=== PATIENT | female | born 1995 | race Caucasian/White ===

== ENCOUNTER 2016-07-12 12:51 | Emergency (ER) | payer OTHER ==
[~2016-07-12] VITALS: Ht 160 cm; Wt 78.0 kg
[~2016-07-12 12:51] MED LIST: 12 HOUR DECONG120 M1 PO; ANTIVERT25 MG PO; ATIVAN0.5 MG PO; AZITHROMYCIN250 MG; BENADRYL50 MG PO; BENZONATATE100 MG PO; CIPRO500 MG PO; DOXYCYCLINE HY100 M3 PO; FIORICET,ESG1 TABLET PO; LORTAB 5-325 M1 EACH PO; MOTRIN600 MG PO; MOTRIN800 MG PO; NAPROXEN500 MG PO; PERCOCET 5/31 TABLET PO; PRILOSEC20 MG PO; PYRIDIUM100 MG PO; ROBITUSSIN AC,T10 ML PO; SKELAXIN800 MG PO; SUBUTEX8 MG PO; SYNTHROID88 MCG PO; ULTRAM50 MG PO; ZANTAC150 MG PO; ZOFRAN ODT4 MG PO; ZOLOFT25 MG PO
[2016-07-12 12:59] VITALS: BP 136/77
== END 2016-07-12 15:02 | disposition left against medical advice (07) ==
LOC: EME 12:51
DX: T17.228A Food in pharynx causing other injury, initial encounter (principal); Z53.21 Procedure and treatment not carried out due to patient leaving prior to being seen by health care provider

== ENCOUNTER 2016-08-13 15:40 | Emergency (ER) | payer OTHER ==
[~2016-08-13] VITALS: Ht 160 cm; Wt 74.6 kg
[2016-08-13 16:21] LABS: HEMATOCRIT 39.9 % (36.0-46.0); MCH 29.6 PG (29.0-34.0); MCHC 35.1 G/DL (30.0-36.0); MCV 84.4 FL (83-99); MEAN PLAT.VOLUME 9.7 uM^3 (9.5-12.4); PLATELET COUNT 280 K/uL (156-360); RBC DIS.WIDTH-CV 12.3 % (11.8-14.6); RED BLOOD COUNT 4.73 M/uL (3.80-5.20); WHITE BLOOD COUNT 9.2 K/uL (4.1-10.2)
[2016-08-13 16:33] LABS: CHLORIDE 108 mEq/L (99-109); POTASSIUM 4.5 mEq/L (3.7-5.4); SODIUM 141 mEq/L (136-147)
[2016-08-13 16:35] LABS: GLUCOSE 102 mg/dL (70-99)
[2016-08-13 16:36] LABS: ANION GAP 9 MEQ/L (2-14)
[2016-08-13 16:37] LABS: TOTAL BILIRUBIN 1.5 mg/dL (0.0-1.0)
[2016-08-13 16:38] LABS: ALKALINE PHOSPHATASE 98 IU/L (3-129)
[2016-08-13 16:39] LABS: GFR ESTIMATE (CALCULATED) > 59 mL/min/
[2016-08-13 16:40] LABS: UREA NITROGEN (BUN) 14 mg/dL (9-23)
[2016-08-13 16:42] LABS: LIPASE 16 U/L (1.0-51.0)
[2016-08-13 16:48] LABS: QUANTITATIVE HCG < 4.0 MIU/ML
[2016-08-13 17:28] LABS: ADD MIUA? YES; BILIRUBIN NEGATIVE; BLOOD NEGATIVE; COLOR YELLOW ((YELLOW)); GLUCOSE (STRIP) NEGATIVE; KETONES NEGATIVE; LEUKOCYTES TRACE; NITRITE NEGATIVE; PROTEIN (STRIP) NEGATIVE; SPECIFIC GRAVITY 1.026 (1.000-1.030); UROBILINOGEN 0.2 MG/DL (0.2-1.0)
[2016-08-13 17:52] LABS: BACTERIA RARE /HPF; EPITHELIAL CELLS 1+ /HPF; MUCUS TRACE /LPF; RED BLOOD CELLS 0-5 /HPF (0-5); UCUL ADDED? NO; WHITE BLOOD CELLS 0-5 /HPF (0-5)
[2016-08-13] MEDS ORDERED: ZOFRAN ODT4 MG PO (21:02)
[2016-08-13] MEDS ORDERED: PERCOCET 5/31 TABLET PO (21:02)
[2016-08-13 21:13] VITALS: BP 105/65
[2016-08-14] MEDS ORDERED: SYNTHROID88 MCG PO (21:31)
[2016-08-14] MEDS ORDERED: VITAMIN C500 M1 PO (21:31)
[2016-08-14] MEDS ORDERED: VITAMIN D2000 UNI1 PO (21:32)
== END 2016-08-13 21:17 | disposition home or self-care (01) ==
LOC: EME 15:40
DX: K80.20 Calculus of gallbladder without cholecystitis without obstruction (principal); J45.909 Unspecified asthma, uncomplicated; K21.9 Gastro-esophageal reflux disease without esophagitis; F17.200 Nicotine dependence, unspecified, uncomplicated
CPT/HCPCS: 76705; 80053; 81003; 83690; 84702; 85027; 99281; 99284

== ENCOUNTER 2016-08-14 17:06 | Observation (INO) | payer OTHER ==
[~2016-08-14] VITALS: Ht 162.6 cm; Wt 74.2 kg
[2016-08-14 17:52] LABS: HEMATOCRIT 37.9 % (36.0-46.0); MCH 29.9 PG (29.0-34.0); MCHC 35.6 G/DL (30.0-36.0); MEAN PLAT.VOLUME 9.9 uM^3 (9.5-12.4); PLATELET COUNT 260 K/uL (156-360); RBC DIS.WIDTH-SD 36.2 % (39-53); RED BLOOD COUNT 4.51 M/uL (3.80-5.20)
[2016-08-14 17:53] LABS: WHITE BLOOD COUNT 5.3 K/uL (4.1-10.2)
[2016-08-14 18:01] LABS: CHLORIDE 105 mEq/L (99-109); POTASSIUM 3.9 mEq/L (3.7-5.4); SODIUM 141 mEq/L (136-147)
[2016-08-14 18:03] LABS: GLUCOSE 97 mg/dL (70-99)
[2016-08-14 18:04] LABS: ANION GAP 9 MEQ/L (2-14)
[2016-08-14 18:06] LABS: TOTAL BILIRUBIN 1.1 mg/dL (0.0-1.0)
[2016-08-14 18:07] LABS: ALKALINE PHOSPHATASE 86 IU/L (3-129); GFR ESTIMATE (CALCULATED) > 59 mL/min/
[2016-08-14 18:08] LABS: UREA NITROGEN (BUN) 10 mg/dL (9-23)
[2016-08-14 18:10] LABS: LIPASE 16 U/L (1.0-51.0)
[2016-08-14 18:18] LABS: QUANTITATIVE HCG < 4.0 MIU/ML
[2016-08-14 18:26] LABS: ADD MIUA? YES; BILIRUBIN SMALL; BLOOD NEGATIVE; COLOR DK YELLOW ((YELLOW)); GLUCOSE (STRIP) NEGATIVE; KETONES NEGATIVE; LEUKOCYTES SMALL; NITRITE NEGATIVE; PH, URINE 5.5 (5-8); PROTEIN (STRIP) TRACE; SPECIFIC GRAVITY 1.027 (1.000-1.030)
[2016-08-14 18:38] LABS: BACTERIA RARE /HPF; EPITHELIAL CELLS 2+ /HPF; MUCUS 3+ /LPF; UCUL ADDED? NO
[2016-08-14] MEDS ORDERED: VITAMIN C500 M1 PO (21:31)
[2016-08-14] MEDS ORDERED: SYNTHROID88 MCG PO (21:31)
[2016-08-14] MEDS ORDERED: VITAMIN D2000 UNI1 PO (21:32)
[2016-08-14 22:18] VITALS: BP 116/62
[2016-08-14 23:46] VITALS: BP 107/68
[2016-08-15 00:30] LABS: SERUM ETHYL ALCOHOL < 10 mg/dL
[2016-08-15 04:38] VITALS: BP 100/67
[2016-08-15 08:17] VITALS: BP 98/56
[2016-08-15] MEDS ORDERED: ZOFRAN4 MG PO (11:29)
[2016-08-15 12:00] LABS: AMPHETAMINES QUANT VALUE 0 NG/ML; BARBITUATES QUANT VALUE 0 NG/ML; BENZODIAZEPINES QUANT VALUE 0 NG/ML; BENZODIAZEPINES, URINE SCREEN Negative (200 ng/mL); MARIJUANA QUANT VALUE 0 NG/ML; OPIATES QUANTITATIVE VALUE 0 NG/ML; PHENCYCLIDINE QUANT VALUE 0 NG/ML
[2016-08-16] MEDS ORDERED: VITAMIN D31000 UNI2 PO (11:17)
== END 2016-08-15 11:58 | disposition home or self-care (01) ==
LOC: EME 17:06 → EDOF 21:11 → 5WEST 21:11 → EDOF 21:11 → 5WEST 22:04
PROVIDERS: Physician Assistant Medical
DX: R11.2 Nausea with vomiting, unspecified (principal); K80.20 Calculus of gallbladder without cholecystitis without obstruction; R10.9 Unspecified abdominal pain; E06.3 Autoimmune thyroiditis; F17.210 Nicotine dependence, cigarettes, uncomplicated
CPT/HCPCS: 80053; 80306 90; 81003; 83690; 84702; 85027; 99281; 99284; G0378; G0480; J2270; J2405; J7030; J7042; S0028

== ENCOUNTER 2016-08-16 10:42 | Observation (INO) | payer OTHER ==
[~2016-08-16] VITALS: Ht 160 cm; Wt 74.8 kg
[~2016-08-16 10:42] MED LIST changes: +VITAMIN C500 M1 PO; +VITAMIN D2000 UNI1 PO; +ZOFRAN4 MG PO
[2016-08-16] MEDS ORDERED: VITAMIN D31000 UNI2 PO (11:17)
[2016-08-16 11:26] LABS: EOSINOPHIL (%) 0.9 % (0-5); EOSINOPHIL COUNT 0.1 K/uL (0-0.3); HEMATOCRIT 36.4 % (36.0-46.0); IMMATURE GRANULOCYTE (%) 0.2 % (0.0-0.7); IMMATURE GRANULOCYTE COUNT 0.1 K/uL; LYMPHOCYTE COUNT 1.6 K/uL (1.0-2.8); MCHC 35.7 G/DL (30.0-36.0); MCV 83.9 FL (83-99); MONOCYTE (%) 10.3 % (3-12); MONOCYTE COUNT 0.6 K/uL (0-0.8); NEUTROPHIL COUNT 3.2 K/uL (1.8-6.4); PLATELET COUNT 280 K/uL (156-360); RBC DIS.WIDTH-CV 12.2 % (11.8-14.6); RBC DIS.WIDTH-SD 36.8 % (39-53); RED BLOOD COUNT 4.34 M/uL (3.80-5.20); WHITE BLOOD COUNT 5.5 K/uL (4.1-10.2)
[2016-08-16 11:43] LABS: CHLORIDE 110 mEq/L (99-109); POTASSIUM 3.9 mEq/L (3.7-5.4); SODIUM 141 mEq/L (136-147)
[2016-08-16 11:44] LABS: MAGNESIUM 2.2 mg/dL (1.3-2.7)
[2016-08-16 11:45] LABS: GLUCOSE 91 mg/dL (70-99)
[2016-08-16 11:47] LABS: ANION GAP 10 MEQ/L (2-14)
[2016-08-16 11:48] LABS: TOTAL BILIRUBIN 0.5 mg/dL (0.0-1.0)
[2016-08-16 11:49] LABS: ALKALINE PHOSPHATASE 72 IU/L (3-129); GFR ESTIMATE (CALCULATED) > 59 mL/min/
[2016-08-16 11:50] LABS: UREA NITROGEN (BUN) 7 mg/dL (9-23)
[2016-08-16 13:13] VITALS: BP 114/65
[2016-08-16 16:20] VITALS: BP 114/63
[2016-08-16 19:25] VITALS: BP 117/63
[2016-08-16 23:29] VITALS: BP 116/65
[2016-08-17 03:46] VITALS: BP 97/57
[2016-08-17 06:50] VITALS: BP 104/58
[2016-08-17] MEDS ORDERED: PERCOCET 5/31 TABLET PO (09:03)
[2016-08-17 09:54] VITALS: BP 104/58
== END 2016-08-17 13:17 | disposition home or self-care (01) ==
LOC: EME 10:42 → EDOF 11:41 → 2EAST 11:41 → EDOF 11:41 → 2EAST 13:35
PROVIDERS: Emergency Medicine
PROC: 0FT44ZZ Resection of Gallbladder, Percutaneous Endoscopic Approach (ICD-10-PCS; principal; 2016-08-16)
DX: K80.10 Calculus of gallbladder with chronic cholecystitis without obstruction (principal); F17.200 Nicotine dependence, unspecified, uncomplicated; Z83.49 Family history of other endocrine, nutritional and metabolic diseases; Z88.1 Allergy status to other antibiotic agents; Z88.2 Allergy status to sulfonamides; Z87.898 Personal history of other specified conditions
CPT/HCPCS: 71010; 80053; 83735; 84100; 85025; 88304; 93005; 99281; 99285; G0378; J0131; J1170; J1885; J2175; J2250; J2405; J2710; J2765; J3010; J7030; J7050; J7120; S0028

== ENCOUNTER 2016-08-26 18:50 | Emergency (ER) | payer OTHER ==
[~2016-08-26] VITALS: Ht 160 cm; Wt 76.1 kg
[~2016-08-26 18:50] MED LIST changes: +VITAMIN D31000 UNI2 PO
[2016-08-26] MEDS ORDERED: MOTRIN600 MG PO (19:41)
[2016-08-26 20:09] VITALS: BP 109/87
== END 2016-08-26 20:10 | disposition home or self-care (01) ==
LOC: EME 18:50
DX: S16.1XXA Strain of muscle, fascia and tendon at neck level, initial encounter (principal); S20.219A Contusion of unspecified front wall of thorax, initial encounter; W22.10XA Striking against or struck by unspecified automobile airbag, initial encounter; V43.52XA Car driver injured in collision with other type car in traffic accident, initial encounter; J45.909 Unspecified asthma, uncomplicated; E03.9 Hypothyroidism, unspecified; F17.200 Nicotine dependence, unspecified, uncomplicated
CPT/HCPCS: 99281; 99283

== ENCOUNTER 2016-09-25 05:36 | Emergency (ER) | payer OTHER ==
[~2016-09-25] VITALS: Ht 160 cm; Wt 73.6 kg
[2016-09-25 06:41] LABS: HEMATOCRIT 36.1 % (36.0-46.0); MCH 29.5 PG (29.0-34.0); MCHC 34.3 G/DL (30.0-36.0); MCV 85.7 FL (83-99); MEAN PLAT.VOLUME 9.4 uM^3 (9.5-12.4); PLATELET COUNT 263 K/uL (156-360); RBC DIS.WIDTH-CV 12.1 % (11.8-14.6); RBC DIS.WIDTH-SD 37.8 % (39-53); RED BLOOD COUNT 4.21 M/uL (3.80-5.20); WHITE BLOOD COUNT 6.9 K/uL (4.1-10.2)
[2016-09-25 06:51] LABS: CHLORIDE 108 mEq/L (99-109); POTASSIUM 3.2 mEq/L (3.7-5.4); SODIUM 143 mEq/L (136-147)
[2016-09-25 06:53] LABS: GLUCOSE 107 mg/dL (70-99)
[2016-09-25 06:55] LABS: ANION GAP 11 MEQ/L (2-14)
[2016-09-25 06:57] LABS: GFR ESTIMATE (CALCULATED) > 59 mL/min/
[2016-09-25 06:58] LABS: UREA NITROGEN (BUN) 7 mg/dL (9-23)
[2016-09-25] MEDS ORDERED: PROAIR RESPICL90 MCG IH (07:13)
[2016-09-25 07:38] VITALS: BP 115/59
== END 2016-09-25 07:39 | disposition home or self-care (01) ==
LOC: EME 05:36
DX: J45.901 Unspecified asthma with (acute) exacerbation (principal); E03.9 Hypothyroidism, unspecified; F17.200 Nicotine dependence, unspecified, uncomplicated
CPT/HCPCS: 71020; 80048; 85027; 93005; 94640; 99281; 99284

== ENCOUNTER 2016-10-01 03:28 | Emergency (ER) | payer OTHER ==
[~2016-10-01] VITALS: Ht 160 cm; Wt 73.2 kg
[~2016-10-01 03:28] MED LIST changes: +PROAIR RESPICL90 MCG IH
[2016-10-01 03:31] VITALS: BP 115/81
[2016-10-01 04:15] LABS: EOSINOPHIL (%) 0.9 % (0-5); EOSINOPHIL COUNT 0.1 K/uL (0-0.3); HEMATOCRIT 36.1 % (36.0-46.0); IMMATURE GRANULOCYTE (%) 0.3 % (0.0-0.7); INSTRUMENT ABS NEUTROPHIL CT 3.9 K/uL; LYMPHOCYTE COUNT 2.4 K/uL (1.0-2.8); MCH 29.2 PG (29.0-34.0); MCHC 34.1 G/DL (30.0-36.0); MCV 85.7 FL (83-99); MEAN PLAT.VOLUME 9.3 uM^3 (9.5-12.4); MONOCYTE (%) 8.1 % (3-12); MONOCYTE COUNT 0.6 K/uL (0-0.8); NEUTROPHIL (%) 56.3 % (45-76); NEUTROPHIL COUNT 3.9 K/uL (1.8-6.4); PLATELET COUNT 283 K/uL (156-360); RBC DIS.WIDTH-CV 12.1 % (11.8-14.6); RBC DIS.WIDTH-SD 37.8 % (39-53); RED BLOOD COUNT 4.21 M/uL (3.80-5.20)
[2016-10-01 04:25] LABS: ADD MIUA? YES; BILIRUBIN SMALL; BLOOD NEGATIVE; COLOR YELLOW ((YELLOW)); GLUCOSE (STRIP) NEGATIVE; KETONES 5; LEUKOCYTES TRACE; NITRITE NEGATIVE; PROTEIN (STRIP) 30; SPECIFIC GRAVITY 1.027 (1.000-1.030)
[2016-10-01 04:27] LABS: CHLORIDE 107 mEq/L (99-109); POTASSIUM 3.5 mEq/L (3.7-5.4); SODIUM 139 mEq/L (136-147)
[2016-10-01 04:30] LABS: GLUCOSE 125 mg/dL (70-99)
[2016-10-01 04:31] LABS: ANION GAP 7 MEQ/L (2-14)
[2016-10-01 04:33] LABS: ALKALINE PHOSPHATASE 89 IU/L (3-129); GFR ESTIMATE (CALCULATED) > 59 mL/min/
[2016-10-01 04:35] LABS: UREA NITROGEN (BUN) 7 mg/dL (9-23)
[2016-10-01 04:37] LABS: LIPASE 17 U/L (1.0-51.0)
[2016-10-01 04:42] LABS: BACTERIA 1+ /HPF; CASTS PRESENT /LPF; EPITHELIAL CELLS 2+ /HPF; HYALINE CASTS RARE /LPF; MUCUS 3+ /LPF; RED BLOOD CELLS NONE SEEN /HPF (0-5); UCUL ADDED? NO
[2016-10-01 04:43] LABS: QUANTITATIVE HCG < 4.0 MIU/ML
[2016-10-01] MEDS ORDERED: MACROBID100 MG PO (05:31)
== END 2016-10-01 05:45 | disposition left against medical advice (07) ==
LOC: EME 03:28
PROVIDERS: Emergency Medicine
DX: N39.0 Urinary tract infection, site not specified (principal); R10.13 Epigastric pain; R11.2 Nausea with vomiting, unspecified; J45.909 Unspecified asthma, uncomplicated; E03.9 Hypothyroidism, unspecified; F17.200 Nicotine dependence, unspecified, uncomplicated
CPT/HCPCS: 80053; 81003; 83690; 84702; 85025; 99281; 99284

== ENCOUNTER 2016-10-24 19:07 | Emergency (ER) | payer OTHER ==
[~2016-10-24] VITALS: Ht 160 cm; Wt 73.2 kg
[~2016-10-24 19:07] MED LIST changes: +MACROBID100 MG PO
[2016-10-24 19:19] VITALS: BP 132/89
[2016-10-24 19:32] LABS: HEMATOCRIT 38.9 % (36.0-46.0); MCH 29.5 PG (29.0-34.0); MCHC 34.4 G/DL (30.0-36.0); MCV 85.7 FL (83-99); MEAN PLAT.VOLUME 9.7 uM^3 (9.5-12.4); PLATELET COUNT 302 K/uL (156-360); RBC DIS.WIDTH-CV 12.1 % (11.8-14.6); RBC DIS.WIDTH-SD 37.8 % (39-53); RED BLOOD COUNT 4.54 M/uL (3.80-5.20)
[2016-10-24 19:42] LABS: CHLORIDE 105 mEq/L (99-109); POTASSIUM 3.7 mEq/L (3.7-5.4); SODIUM 139 mEq/L (136-147)
[2016-10-24 19:44] LABS: GLUCOSE 115 mg/dL (70-99)
[2016-10-24 19:45] LABS: ANION GAP 10 MEQ/L (2-14)
[2016-10-24 19:47] LABS: GFR ESTIMATE (CALCULATED) > 59 mL/min/
[2016-10-24 19:48] LABS: UREA NITROGEN (BUN) 10 mg/dL (9-23)
[2016-10-24 20:27] LABS: QUANTITATIVE HCG < 4.0 MIU/ML
[2016-10-24 20:40] LABS: CREATINE KINASE 61 IU/L (1-294)
[2016-10-24 20:44] LABS: ADD MIUA? NO; BILIRUBIN NEGATIVE; BLOOD NEGATIVE; COLOR COLORLESS ((YELLOW)); GLUCOSE (STRIP) NEGATIVE; KETONES NEGATIVE; LEUKOCYTES NEGATIVE; NITRITE NEGATIVE; PROTEIN (STRIP) NEGATIVE; SPECIFIC GRAVITY 1.004 (1.000-1.030); UROBILINOGEN 0.2 MG/DL (0.2-1.0)
[2016-10-24 21:00] LABS: AMPHETAMINE NEGATIVE (500 ng/mL); BARBITURATES NEGATIVE (200 ng/mL); BENZODIAZEPINES NEGATIVE (150 ng/mL); COCAINE NEGATIVE (150 ng/mL); INTERNAL CONTROLS VALID? YES; METHADONE NEGATIVE (200 ng/mL); METHAMPHETAMINE NEGATIVE (500 ng/mL); OPIATES (MORPHINE) NEGATIVE (100 ng/mL); OXYCODONE NEGATIVE (100 ng/mL); PHENCYCLIDINE NEGATIVE (25 ng/mL); PROPOXYPHENE NEGATIVE (300 ng/mL); THC CANNABINOIDS NEGATIVE (50 ng/mL); TRICYCLIC ANTIDEPRESSANTS NEGATIVE (300 ng/mL)
== END 2016-10-24 22:50 | disposition home or self-care (01) ==
LOC: EME 19:07
PROVIDERS: Physician Assistant
DX: R55 Syncope and collapse (principal); J45.909 Unspecified asthma, uncomplicated; E03.9 Hypothyroidism, unspecified; F17.200 Nicotine dependence, unspecified, uncomplicated
CPT/HCPCS: 71020; 80048; 81003; 82550; 84702; 85027; 93005; 99281; 99284

== ENCOUNTER 2016-12-22 02:58 | Emergency (ER) | payer OTHER ==
[~2016-12-22] VITALS: Ht 160 cm; Wt 72.3 kg
[2016-12-22 04:04] LABS: HEMATOCRIT 36.8 % (36.0-46.0); MCH 29.9 PG (29.0-34.0); MCHC 35.3 G/DL (30.0-36.0); MCV 84.6 FL (83-99); MEAN PLAT.VOLUME 9.5 uM^3 (9.5-12.4); PLATELET COUNT 260 K/uL (156-360); RBC DIS.WIDTH-CV 11.9 % (11.8-14.6); RBC DIS.WIDTH-SD 36.3 % (39-53); RED BLOOD COUNT 4.35 M/uL (3.80-5.20); WHITE BLOOD COUNT 7.4 K/uL (4.1-10.2)
[2016-12-22 04:14] LABS: CHLORIDE 107 mEq/L (99-109); POTASSIUM 3.5 mEq/L (3.7-5.4); SODIUM 140 mEq/L (136-147)
[2016-12-22 04:16] LABS: GLUCOSE 91 mg/dL (70-99)
[2016-12-22 04:18] LABS: ANION GAP 10 MEQ/L (2-14)
[2016-12-22 04:20] LABS: ALKALINE PHOSPHATASE 75 IU/L (3-129); GFR ESTIMATE (CALCULATED) > 59 mL/min/
[2016-12-22 04:21] LABS: UREA NITROGEN (BUN) 7 mg/dL (9-23)
[2016-12-22 04:23] LABS: LIPASE 17 U/L (1.0-51.0)
[2016-12-22 04:32] LABS: QUANTITATIVE HCG < 4.0 MIU/ML
[2016-12-22] MEDS ORDERED: BENTYL20 MG PO (04:44)
[2016-12-22] MEDS ORDERED: PROMETHAZINE HC25 M1 PO (04:44)
[2016-12-22 05:20] VITALS: BP 116/79
== END 2016-12-22 05:24 | disposition home or self-care (01) ==
LOC: EME 02:58
PROVIDERS: Emergency Medicine
DX: K20.9 Esophagitis, unspecified (principal); R11.2 Nausea with vomiting, unspecified; R51 Headache; E86.0 Dehydration; E03.9 Hypothyroidism, unspecified; F17.200 Nicotine dependence, unspecified, uncomplicated
CPT/HCPCS: 80053; 81003; 83690; 84702; 85027; 99281; 99284; J0780; J1200; J7030; S0028

== ENCOUNTER 2017-01-04 23:55 | Emergency (ER) | payer SELFPAY ==
[~2017-01-04] VITALS: Ht 160 cm; Wt 71.9 kg
[~2017-01-04 23:55] MED LIST changes: +BENTYL20 MG PO; +PROMETHAZINE HC25 M1 PO
[2017-01-05] MEDS ORDERED: PREDNISONE20 MG PO (01:27)
[2017-01-05] MEDS ORDERED: AMOXICILLIN875 MG PO (01:27)
[2017-01-05 02:22] VITALS: BP 126/59
== END 2017-01-05 02:20 | disposition home or self-care (01) ==
LOC: EME 23:55
DX: J02.9 Acute pharyngitis, unspecified (principal); F17.200 Nicotine dependence, unspecified, uncomplicated; Z88.2 Allergy status to sulfonamides; J45.909 Unspecified asthma, uncomplicated; F32.9 Major depressive disorder, single episode, unspecified; E03.9 Hypothyroidism, unspecified; G43.909 Migraine, unspecified, not intractable, without status migrainosus
CPT/HCPCS: 99281; 99283

== ENCOUNTER 2017-01-14 19:29 | Emergency (ER) | payer OTHER ==
[~2017-01-14] VITALS: Ht 160 cm; Wt 72.0 kg
[~2017-01-14 19:29] MED LIST changes: +AMOXICILLIN875 MG PO; +PREDNISONE20 MG PO
[2017-01-14 20:33] LABS: HEMATOCRIT 40.2 % (36.0-46.0); MCH 29.8 PG (29.0-34.0); MCHC 35.1 G/DL (30.0-36.0); MEAN PLAT.VOLUME 9.8 uM^3 (9.5-12.4); PLATELET COUNT 297 K/uL (156-360); RBC DIS.WIDTH-CV 11.7 % (11.8-14.6); RBC DIS.WIDTH-SD 35.9 % (39-53); RED BLOOD COUNT 4.73 M/uL (3.80-5.20)
[2017-01-14 20:56] LABS: ANION GAP 10 MEQ/L (2-14); CHLORIDE 105 MEQ/L (99-109); POTASSIUM 3.8 MEQ/L (3.7-5.4); SAMPLE HEMOLYSIS CHECK 0; SAMPLE ICTERIC CHECK 0; SAMPLE LIPEMIA CHECK 1; SODIUM 139 MEQ/L (136-147)
[2017-01-14 20:57] LABS: INTERNAL CONTROL VALID? YES; MONOSPOT (MONONUCLEOSIS SEROL) NEGATIVE
[2017-01-14 21:01] LABS: GFR ESTIMATE (CALCULATED) > 59 mL/min/; GLUCOSE 89 mg/dL (70-99); UREA NITROGEN (BUN) 8 mg/dL (9-23)
[2017-01-14 21:23] LABS: QUANTITATIVE HCG < 4.0 MIU/ML
[2017-01-14 22:21] VITALS: BP 122/80
[2017-01-15 09:41] LABS: LYME DISEASE SEROLOGY SCREEN NEGATIVE (NEGATIVE)
== END 2017-01-14 22:22 | disposition home or self-care (01) ==
LOC: EME 19:29
PROVIDERS: Physician Assistant
DX: R52 Pain, unspecified (principal); F17.200 Nicotine dependence, unspecified, uncomplicated
CPT/HCPCS: 71020; 80048; 84443; 84702; 85027; 86308; 86618; 99281; 99283

== ENCOUNTER 2017-01-31 22:52 | Emergency (ER) | payer OTHER ==
[~2017-01-31] VITALS: Ht 160 cm; Wt 71.3 kg
[2017-01-31 23:44] LABS: HEMATOCRIT 37.5 % (36.0-46.0); MCH 29.6 PG (29.0-34.0); MCHC 34.9 G/DL (30.0-36.0); MCV 84.7 FL (83-99); MEAN PLAT.VOLUME 9.8 uM^3 (9.5-12.4); PLATELET COUNT 297 K/uL (156-360); RBC DIS.WIDTH-CV 11.6 % (11.8-14.6); RBC DIS.WIDTH-SD 35.9 % (39-53); RED BLOOD COUNT 4.43 M/uL (3.80-5.20); WHITE BLOOD COUNT 8.9 K/uL (4.1-10.2)
[2017-01-31 23:56] LABS: CHLORIDE 106 mEq/L (99-109); SODIUM 141 mEq/L (136-147)
[2017-01-31 23:58] LABS: GLUCOSE 93 mg/dL (70-99)
[2017-01-31 23:59] LABS: ANION GAP 10 MEQ/L (2-14)
[2017-02-01] LABS: TOTAL BILIRUBIN 0.9 mg/dL (0.0-1.0)
[2017-02-01 00:01] LABS: ALKALINE PHOSPHATASE 110 IU/L (3-129)
[2017-02-01 00:02] LABS: GFR ESTIMATE (CALCULATED) > 59 mL/min/
[2017-02-01 00:03] LABS: UREA NITROGEN (BUN) 11 mg/dL (9-23)
[2017-02-01 00:04] LABS: ADD MIUA? YES; BILIRUBIN NEGATIVE; BLOOD NEGATIVE; COLOR YELLOW ((YELLOW)); GLUCOSE (STRIP) NEGATIVE; KETONES NEGATIVE; LEUKOCYTES NEGATIVE; NITRITE NEGATIVE; PROTEIN (STRIP) NEGATIVE; SPECIFIC GRAVITY 1.013 (1.000-1.030)
[2017-02-01 00:05] LABS: LIPASE 30 U/L (1.0-51.0)
[2017-02-01 00:58] LABS: BACTERIA RARE /HPF; EPITHELIAL CELLS 1+ /HPF; MUCUS TRACE /LPF; RED BLOOD CELLS 0-5 /HPF (0-5); UCUL ADDED? NO; WHITE BLOOD CELLS 0-5 /HPF (0-5)
[2017-02-01 01:39] VITALS: BP 106/74
== END 2017-02-01 01:40 | disposition home or self-care (01) ==
LOC: EME 22:52
PROVIDERS: Emergency Medicine
DX: R10.31 Right lower quadrant pain (principal); E03.9 Hypothyroidism, unspecified; F17.200 Nicotine dependence, unspecified, uncomplicated; J45.909 Unspecified asthma, uncomplicated; Z88.2 Allergy status to sulfonamides
CPT/HCPCS: 74176; 80053; 81003; 83605; 83690; 85027; 93005; 99281; 99284; J2270

== ENCOUNTER 2017-02-04 23:48 | Emergency (ER) | payer OTHER ==
[~2017-02-04] VITALS: Ht 162.6 cm; Wt 71.4 kg
[2017-02-05 01:04] VITALS: BP 115/87
== END 2017-02-05 01:05 | disposition home or self-care (01) ==
LOC: EME 23:48
DX: S09.90XA Unspecified injury of head, initial encounter (principal); W21.01XA Struck by football, initial encounter; F17.200 Nicotine dependence, unspecified, uncomplicated
CPT/HCPCS: 99281; 99284

== ENCOUNTER 2017-03-05 21:02 | Emergency (ER) | payer OTHER ==
[~2017-03-05] VITALS: Ht 162.6 cm; Wt 72.5 kg
[2017-03-06] MEDS ORDERED: BENADRYL ALLERG25 MG PO (00:14)
[2017-03-06] MEDS ORDERED: PEPCID20 MG PO (00:14)
[2017-03-06 00:37] VITALS: BP 132/91
== END 2017-03-06 00:37 | disposition home or self-care (01) ==
LOC: EME 21:02
DX: T78.40XA Allergy, unspecified, initial encounter (principal); J45.909 Unspecified asthma, uncomplicated; E03.9 Hypothyroidism, unspecified; F17.200 Nicotine dependence, unspecified, uncomplicated
CPT/HCPCS: 99281; 99284

== ENCOUNTER 2017-03-19 07:56 | Emergency (ER) | payer OTHER ==
[~2017-03-19] VITALS: Ht 160 cm; Wt 73.1 kg
[~2017-03-19 07:56] MED LIST changes: +BENADRYL ALLERG25 MG PO; +PEPCID20 MG PO
[2017-03-19 08:51] LABS: MCH 29.8 PG (29.0-34.0); MCHC 34.7 G/DL (30.0-36.0); MCV 85.8 FL (83-99); MEAN PLAT.VOLUME 9.7 uM^3 (9.5-12.4); PLATELET COUNT 246 K/uL (156-360); RBC DIS.WIDTH-CV 11.9 % (11.8-14.6); RBC DIS.WIDTH-SD 37.1 % (39-53); RED BLOOD COUNT 4.43 M/uL (3.80-5.20); WHITE BLOOD COUNT 6.1 K/uL (4.1-10.2)
[2017-03-19 09:06] LABS: ADD MIUA? NO; BILIRUBIN NEGATIVE; BLOOD NEGATIVE; COLOR YELLOW ((YELLOW)); GLUCOSE (STRIP) NEGATIVE; KETONES NEGATIVE; LEUKOCYTES NEGATIVE; NITRITE NEGATIVE; PROTEIN (STRIP) NEGATIVE; SPECIFIC GRAVITY 1.023 (1.000-1.030); UROBILINOGEN 0.2 MG/DL (0.2-1.0)
[2017-03-19 09:23] LABS: ANION GAP 7 MEQ/L (2-14); CHLORIDE 108 MEQ/L (99-109); POTASSIUM 4.3 MEQ/L (3.7-5.4); SAMPLE HEMOLYSIS CHECK 0; SAMPLE ICTERIC CHECK 0; SAMPLE LIPEMIA CHECK 0; SODIUM 141 MEQ/L (136-147); TOTAL BILIRUBIN 0.6 MG/DL (0.0-1.0)
[2017-03-19 09:29] LABS: ALKALINE PHOSPHATASE 75 IU/L (3-129); GFR ESTIMATE (CALCULATED) > 59 mL/min/; GLUCOSE 95 mg/dL (70-99); LIPASE 25 U/L (1.0-51.0); UREA NITROGEN (BUN) 10 mg/dL (9-23)
[2017-03-19 09:32] LABS: QUANTITATIVE HCG < 4.0 MIU/ML
[2017-03-19] MEDS ORDERED: CARAFATE1 GM PO (10:03)
[2017-03-19] MEDS ORDERED: PEPCID20 MG PO (10:03)
[2017-03-19 10:20] VITALS: BP 101/63
== END 2017-03-19 10:20 | disposition home or self-care (01) ==
LOC: EME 07:56
PROVIDERS: Physician Assistant
DX: R10.13 Epigastric pain (principal); R20.0 Anesthesia of skin; E06.3 Autoimmune thyroiditis; J45.909 Unspecified asthma, uncomplicated; F17.200 Nicotine dependence, unspecified, uncomplicated; Z88.2 Allergy status to sulfonamides
CPT/HCPCS: 80053; 81003; 83690; 84702; 85027; 93005; 99281; 99283

== ENCOUNTER 2017-05-08 12:32 | Emergency (ER) | payer OTHER ==
[~2017-05-08] VITALS: Ht 160 cm; Wt 77.0 kg
[~2017-05-08 12:32] MED LIST changes: +CARAFATE1 GM PO
[2017-05-08] MEDS ORDERED: PEN-VEE K,VEET500 MG PO (13:37)
[2017-05-08] MEDS ORDERED: MOTRIN600 MG PO (13:37)
[2017-05-08] MEDS ORDERED: TYLENOL WITH C1 EACH PO (13:37)
[2017-05-08 14:02] VITALS: BP 124/66
[2017-05-08] MEDS ORDERED: PREDNISONE10 M1 PO (14:03)
== END 2017-05-08 14:10 | disposition home or self-care (01) ==
LOC: EME 12:32
DX: J06.9 Acute upper respiratory infection, unspecified (principal); K08.89 Other specified disorders of teeth and supporting structures; F17.200 Nicotine dependence, unspecified, uncomplicated; J45.909 Unspecified asthma, uncomplicated; F32.9 Major depressive disorder, single episode, unspecified; F41.9 Anxiety disorder, unspecified; E06.3 Autoimmune thyroiditis; Z88.2 Allergy status to sulfonamides
CPT/HCPCS: 99281; 99284

== ENCOUNTER 2017-05-30 23:33 | Emergency (ER) | payer OTHER ==
[~2017-05-30] VITALS: Ht 160 cm; Wt 76.5 kg
[~2017-05-30 23:33] MED LIST changes: +PEN-VEE K,VEET500 MG PO; +PREDNISONE10 M1 PO; +TYLENOL WITH C1 EACH PO
[2017-05-31] MEDS ORDERED: ATARAX,VISTARIL25 MG PO (00:31)
[2017-05-31 00:50] VITALS: BP 153/87
== END 2017-05-31 00:50 | disposition home or self-care (01) ==
LOC: EME 23:33
DX: R21 Rash and other nonspecific skin eruption (principal); T78.40XA Allergy, unspecified, initial encounter; X58.XXXA Exposure to other specified factors, initial encounter; Z98.818 Other dental procedure status; F17.200 Nicotine dependence, unspecified, uncomplicated
CPT/HCPCS: 99281; 99283

== ENCOUNTER 2017-06-24 21:12 | Emergency (ER) | payer OTHER ==
[~2017-06-24] VITALS: Ht 160 cm; Wt 77.7 kg
[~2017-06-24 21:12] MED LIST changes: +ATARAX,VISTARIL25 MG PO
[2017-06-24] MEDS ORDERED: MOTRIN800 MG PO (23:15)
[2017-06-24] MEDS ORDERED: REGLAN10 MG PO (23:15)
[2017-06-25 00:12] VITALS: BP 0/0
== END 2017-06-25 00:13 | disposition left against medical advice (07) ==
LOC: EME 21:12 → RME 21:12
DX: G43.909 Migraine, unspecified, not intractable, without status migrainosus (principal); J45.909 Unspecified asthma, uncomplicated; E06.3 Autoimmune thyroiditis; E03.9 Hypothyroidism, unspecified; F41.9 Anxiety disorder, unspecified; F32.9 Major depressive disorder, single episode, unspecified; F17.200 Nicotine dependence, unspecified, uncomplicated; Z90.49 Acquired absence of other specified parts of digestive tract; Z88.2 Allergy status to sulfonamides; Z88.8 Allergy status to other drugs, medicaments and biological substances
CPT/HCPCS: 70450; 99281; 99284

== ENCOUNTER 2017-07-09 16:22 | Emergency (ER) | payer OTHER ==
[~2017-07-09] VITALS: Ht 162.6 cm; Wt 79.1 kg
[~2017-07-09 16:22] MED LIST changes: +REGLAN10 MG PO
[2017-07-09] MEDS ORDERED: MOTRIN600 MG PO (17:40)
[2017-07-09] MEDS ORDERED: PEN-VEE K,VEET500 MG PO (17:40)
[2017-07-09 17:51] VITALS: BP 123/83
== END 2017-07-09 17:52 | disposition home or self-care (01) ==
LOC: EME 16:22
DX: K04.7 Periapical abscess without sinus (principal); F17.200 Nicotine dependence, unspecified, uncomplicated; Z88.2 Allergy status to sulfonamides
CPT/HCPCS: 99281; 99283

== ENCOUNTER 2017-08-02 00:44 | Emergency (ER) | payer OTHER ==
[~2017-08-02] VITALS: Ht 160 cm; Wt 77.3 kg
[2017-08-02 01:03] LABS: HEMATOCRIT 35.8 % (36.0-46.0); HEMOGLOBIN 12.7 G/DL (11.9-15.5); MCH 30.1 PG (29.0-34.0); MCHC 35.5 G/DL (30.0-36.0); MCV 84.8 FL (83-99); PLATELET COUNT 314 K/uL (156-360); RBC DIS.WIDTH-CV 11.8 % (11.8-14.6); RED BLOOD COUNT 4.22 M/uL (3.80-5.20); WHITE BLOOD COUNT 6.7 K/uL (4.1-10.2)
[2017-08-02 01:14] LABS: CHLORIDE 103 mEq/L (99-109); POTASSIUM 4.4 mEq/L (3.7-5.4); SODIUM 139 mEq/L (136-147)
[2017-08-02 01:16] LABS: GLUCOSE 99 mg/dL (70-99)
[2017-08-02 01:19] LABS: CREATININE 0.8 mg/dL (0.6-1.3); GFR ESTIMATE (CALCULATED) > 59 mL/min/
[2017-08-02 01:20] LABS: UREA NITROGEN (BUN) 9 mg/dL (9-23)
[2017-08-02 03:06] LABS: QUANTITATIVE HCG < 4.0 MIU/ML
[2017-08-02 03:54] VITALS: BP 116/76
== END 2017-08-02 03:55 | disposition home or self-care (01) ==
LOC: EME 00:44
DX: R06.00 Dyspnea, unspecified (principal); F41.9 Anxiety disorder, unspecified; K08.499 Partial loss of teeth due to other specified cause, unspecified class; J45.909 Unspecified asthma, uncomplicated; F32.9 Major depressive disorder, single episode, unspecified; F17.200 Nicotine dependence, unspecified, uncomplicated; E06.3 Autoimmune thyroiditis; Z88.2 Allergy status to sulfonamides
CPT/HCPCS: 71046; 80048; 84702; 85027; 85379; 93005; 99281; 99284